=== PATIENT | male | born 1990 | race Two or more races ===

== ENCOUNTER 2021-03-22 16:11 | Emergency (ER) | payer SELFPAY ==
[~2021-03-22] VITALS: Ht 170.2 cm; Wt 71.2 kg
[2021-03-22 19:58] VITALS: BP 139/85
== END 2021-03-22 20:18 | disposition home or self-care (01) ==
LOC: ER 16:11
DX: R10.31 Right lower quadrant pain (principal)
CPT/HCPCS: 74176